=== PATIENT | female | born 1955 | race Two or more races ===

== ENCOUNTER 2023-08-27 06:06 | Day surgery (SDC) | payer OTHER ==
[~2023-08-27] VITALS: Ht 152.4 cm; Wt 99.8 kg
[~2023-08-27 06:06] MED LIST: APIX5TAB PO; CEL100T PO; METO25TA5 PO
[2023-08-27] MEDS ORDERED: LIDOCAINE W/ EPINEPHRINE 1% 20ML VIAL ONE (07:24)
[2023-08-27] MEDS ORDERED: METHYLENE BLUE 0.5% 5MG/ML 10ml AMP IV ONE (07:25)
[2023-08-27] MEDS ORDERED: CONJ ESTROGENS 0.625MG/GM VAG CRM 30GM PV ONE (07:25)
[2023-08-27] MEDS ORDERED: ROCURONIUM 10MG/ML 10ML VIAL IV ONE (07:37)
[2023-08-27] MEDS ORDERED: ONDANSETRON HCL 4 MG/2 ML VIAL ONE (07:37)
[2023-08-27] MEDS ORDERED: fentaNYL CITRATE 100 MCG/2 ML VL ONE (07:37)
[2023-08-27] MEDS ORDERED: MIDAZOLAM HCL 2MG/2ML 2ml VIAL (1mg/ml) ONE (07:37)
[2023-08-27] MEDS ORDERED: fentaNYL CITRATE 5 ML ONE (07:37)
[2023-08-27] MEDS ORDERED: GLYCOPYRROLATE 0.2 MG/ML 1ML VIAL ONE (07:37)
[2023-08-27] MEDS ORDERED: HYDROmorphone HCL 2 MG/ML VL/or syr ONE (07:37)
[2023-08-27] MEDS ORDERED: ETOMIDATE (2MG/ML) 20ML VIAL IV ONE (07:37)
[2023-08-27] MEDS ORDERED: NEOSTIGMINE 1 MG/ML INJ (10mg/10ML VIAL) ONE (07:37)
[2023-08-27] MEDS ORDERED: DexAMETHasone SOD PHOS 10MG/1ML VIAL INJ ONE (07:37)
[2023-08-27] MEDS ORDERED: SODIUM CHLORIDE LOCK 10 ML ONE (07:37)
[2023-08-27] MEDS ORDERED: CLINDAMYCIN 600MG IV 50 ML IV ONE (07:47)
[2023-08-27] MEDS ORDERED: HYDROmorphone HCL 2 MG/ML VL/or syr IV PRN ×4 (08:15→08:30)
[2023-08-27] MEDS ORDERED: MORPHINE SULFATE INJ 2 MG/ml SYRG IV PRN ×2 (08:15→08:30)
[2023-08-27] MEDS ORDERED: METOCLOPRAMIDE HCL 5MG/ml INJ 2ml VIAL IV PRN (08:15)
[2023-08-27] MEDS ORDERED: KETOROLAC TROMETH 30 MG/ML 1ML VIAL IV ONE (08:15)
[2023-08-27] MEDS ORDERED: GELATIN 1 SPONGE SIZE 100 TOP ONE (09:27)
[2023-08-27 10:24] VITALS: RESP 11; TEMP 97.4; O2SAT 92
[2023-08-27] MEDS ORDERED: ONDANSETRON HCL 4 MG/2 ML VIAL IV PRN (10:45)
[2023-08-27 13:00] VITALS: BP 130/55; PULSE 68; RESP 10; O2SAT 99
== END 2023-08-27 13:25 | disposition home or self-care (01) ==
LOC: SUR 06:06
PROVIDERS: ATTEND Obstetrics & Gynecology
DX: N39.3 Stress incontinence (female) (male) (principal); D27.0 Benign neoplasm of right ovary; N81.10 Cystocele, unspecified; R35.0 Frequency of micturition; Z88.0 Allergy status to penicillin; Z88.5 Allergy status to narcotic agent; Z98.51 Tubal ligation status; Z90.710 Acquired absence of both cervix and uterus; Z98.890 Other specified postprocedural states
CPT/HCPCS: 57240; 57288; 58662; 86850; 86900; 86901; 88305; C1771; J1100; J1170; J2250; J2405; J3010; J3490; J7030; Q4100